=== PATIENT | male | born 1990 ===

== ENCOUNTER 2021-10-03 16:56 | Emergency (ER) | payer OTHER ==
--- NOTE | 2021-10-03 17:04 | EDM.PDOC ---
ED HPI GENERAL MEDICAL PROBLEM - General Chief Complaint: General Stated Complaint: SMASHED FINGER AT WORK Time Seen by Provider: 10/03/21 16:58 Source of Information: Reports: Patient History Limitations: Reports: No Limitations - History of Present Illness INITIAL COMMENTS - FREE TEXT/NARRATIVE: HISTORY AND PHYSICAL: History of present illness: Patient is a 31-year-old male who presents to the emergency room with complaints of a crush injury of the left distal fifth digit. He states some heavy equipment fell on his finger resulting in a burst type injury. He denies any o ther extremity involvement. Patient denies any fever, chills, headache, change in vision, syncope or near syncope. Denies any chest pain, back pain, shortness of breath or cough. Denies any abdominal pain, nausea, vomiting, diarrhea, constipation or dysuria. Has not noted any blood in urine or stool. Patient has been eating and drinking appropriately. No recent travel or sick contacts. Review of systems: As per history of present illness and below otherwise all systems reviewed and negative. Past medical history: As per history of present illness and as reviewed below otherwise noncontrib utory. Surgical history: As per history of present illness and as reviewed below otherwise noncontributory. Social history: See social history for further information Family history: As per history of present illness and as reviewed below otherwise noncontributory. Physical exam: General: Well developed and well nourished 31-year-old male. Alert and orientated x 3. Nontoxic in appearance and in no acute distress. Vital signs are stable and have been reviewed by me. Nursing notes were reviewed. HEENT: Atraumatic, normocephalic, pupils equal and reactive bilaterally, negative for conjunctival pallor or scleral icterus, mucous membranes moist, TMs normal bilaterally, throat clear, neck supple, nontender, trachea midline. No drooling or trismus noted. No meningeal signs. No hot potato voice noted. Lungs: Clear to auscultation bilaterally. No wheezes, rales, or rhonchi. Chest nontender. Normal work of breathing, no accessory muscles used. Heart: S1S2, regular rate and rhythm without overt murmur, gallops, or rubs. No JVD. No peripheral edema Abdomen: Soft, nondistended, nontender. Normoactive bowel sounds. Negative for masses or costovertebral tenderness. Pelvis: Stable nontender. Genitourinary/Rectal: Deferred. Skin: 3cm laceration, distal ends of the laceration are superficial with the subcutaneous laceration of the middle of the black. Does not involve the nailbed does run lateral against the side of the medial nail. No active bleeding. Remaining skin is intact, warm, dry. No lesions or rashes noted. Hematologic: No petechiae or purpra. Mucosa appropriate color and normal nail bed color and refill. Extremities: Crush injury with laceration to the left distal fifth digit, does not involve the nailbed. He moves all extremities per self without difficulty or deficits, negative for cords or calf pain. Neurovascular unremarkable. Neuro: Awake, alert, oriented. Cranial nerves II through XII unremarkable. Cerebellum unremarkable. Motor and sensory unremarkable throughout. Exam nonfocal. Psychiatric: Mood and affect are appropriate. Normal thought process. Answering questions appropriately. Please note that the patient was seen and evaluated during the 2019 SARS-CoV-2 novel coronavirus pandemic period. Community viral transmission is ongoing at time of this encounter and the emergency department is operating under pandemic response procedures. Medical Decision Making: Patient is a 31-year-old male who presents to the emergency room with a crush injury to the left distal finger. X-ray shows an acute, minimally distracted crush fracture of the tip of the 5th finger. I will place patient on Keflex. 1% lidocaine was used to anesthetize the laceration. Chlorhexidine and wound wash was used to thoroughly cleanse and irrigate the site. Usual and customary procedures were followed for suture placement. #3 interrupted sutures were placed, 4-0 nylon. Patient tolerated well. Bacitracin nonstick dressing was applied. I have talked with the patient about today's findings, in addition to providing specific details for plan of care. Patient declines wanting anything for pain at this time. We did discuss following up with hand surgeon for ree valuation. Reassessment at the time of disposition demonstrates that the patient is in no acute distress. The patient is stable for discharge, counseling was provided and we discussed in great detail signs and symptoms that would prompt them to return to the Emergency Department. Medication, follow up and supportive care measures were reviewed and discussed. Voices understanding and is agreeable to plan of care. Denies any further questions or concerns at this time. Diagnostics: X-ray Therapeutics: Tdap, lidocaine, bacitracin, nonstick dressing Prescription: Keflex Impression: Tuft fracture, left, open Plan: 1. You were evaluated today on an emergent basis. Keep the skin clean and dry, wash gently with mild soap and water twice daily. Continue to monitor for signs of infection. Take the antibiotic as prescribed to prevent infection. While healing please use a bulky bandage or protective covering to prevent reinjury. 2. You can alternate Tylenol and ibuprofen as needed for pain and fever management. 3. We encourage you to follow up with your primary care provider and/or hand surgeon (Dr Ram or Timothy at ) in the next week for re- evaluation and further care/management. 4. If your symptoms should worsen, new symptoms develop or any of the signs and symptoms we discussed should arise please return to the emergency room or call 911 (if needed). Definitive disposition and diagnosis as appropriate pending reevaluation and review of above. Left Finger-Index Pain Score (Numeric/FACES): 4 - Related Data Allergies Allergy/AdvReac Type Severity Reaction Status Date / Time No Known Allergies Allergy Verified 10/03/21 17:27 Home Meds: Home Meds cephALEXin [Keflex] 500 mg PO BID 5 Days #10 cap 10/03/21 [Rx] ED ROS GENERAL - Review of Systems Review Of Systems: Comprehensive ROS is negative, except as noted in HPI. ED EXAM, GENERAL - Physical Exam Exam: See Below (See dictation) ED GENERAL MEDICAL PROCEDURES - Laceration/Wound Repair Left distal 5th digit Lac/wound length in cm: 3 Appearance: Superficial, Subcutaneous, Irregular Distal NVT: Neuro & Vascular Intact, No Tendon Injury Anesthetic Type: Local Local Anesthetic Volume: 2cc Skin Prep: Chlorhexidine (Hibiciens), Saline, Sterile Drape Saline irrigation (cc's): 500 Exploration/Debridement/Repair: Wound Explored, In a Bloodless Field, Explored to Base, No Foreign Material Found Closed with: Sutures Suture Size: 4-0 # of Sutures: 3 Suture Type: Nylon, Interrupted, Simple Drain Placement: No Sterile Dressing Applied: Provider Tetanus Status Addressed: Yes Complications: No Course - Vital Signs Last Recorded V/S: Last Vital Signs Temp 98.6 F 10/03/21 18:55 Pulse 76 10/03/21 18:55 Resp 16 10/03/21 18:55 BP 148/106 H 10/03/21 18:55 Pulse Ox 99 10/03/21 18:55 - Orders/Labs/Meds Meds: Medications Discontinued Medications Generic Name Dose Route Start Last Admin Trade Name Srinivasan PRN Reason Stop Dose Admin Bacitracin 1 dose 10/03/21 17:33 10/03/21 17:46 Bacitracin Oint 1 Gm U/D Packet TOP 10/03/21 17:34 1 dose ONETIME ONE Administration Diphtheria/Tetanus/Acell Pertussis 0.5 ml 10/03/21 17:33 10/03/21 17:46 Diphtheria,Pertussis(Acell),Tetanus Vaccine 0.5 Ml Syringe IM 10/03/21 17:34 0.5 ml .ONCE ONE Administration Lidocaine HCl 2 ml 10/03/21 17:33 10/03/21 17:46 Lidocaine 1% Pf 2 Ml Sdv INJECT 10/03/21 17:34 2 ml ONETIME ONE Administration Departure - Departure Time of Disposition: 18:26 Disposition: Home, Self-Care 01 Clinical Impression: Open fracture of tuft of distal phalanx of finger - Discharge Information Prescriptions: cephALEXin [Keflex] 500 mg PO BID 5 Days #10 cap Instructions: Finger Fracture, Adult, [id number], Laceration Care, Adult, [id number] Referrals: PCP,None [Primary Care Provider] - Forms: ED Department Discharge Additional Instructions: The following information is given to patients seen in the emergency department who are being discharged to home. This information is to outline your options for follow-up care. We provide all patients seen in our emergency department with a follow-up referral. The need for follow-up, as well as the timing and circumstances, are variable depending upon the specifics of your emergency department visit. If you don't have a primary care physician on staff, we will provide you with a referral. We always advise you to contact your personal physician following an emergency department visit to inform them of the circumstance of the visit and for follow-up with them and/or the need for any referrals to a consulting specialist. The emergency department will also refer you to a specialist when appropriate. This referral assures that you have the opportunity for follow-up care with a specialist. All of these measure are taken in an effort to provide you with optimal care, which includes your follow-up. Under all circumstances we always encourage you to contact your private physician who remains a resource for coordinating your care. When calling for follow-up care, please make the office aware that this follow-up is from your re cent emergency room visit. If for any reason you are refused follow-up, please contact the [facility] at and asked to speak to the emergency department charge nurse. [facility] [address] [place] [address] [id number] [facility] [address] [place] [id number] Thank you for choosing the [facility] emergency department in [place] for your medical needs today. It was a pleasure caring for you. Today you were seen in the emergency department for open finger fracture. Your prescription was electronically sent to: [place] [facility] (antibiotic) 1. You were evaluated today on an emergent basis. Keep the skin clean and dry, wash gently with mild soap and water twice daily. Continue to monitor for signs of infection. Take the antibiotic as prescribed to prevent infection. While healing please use a bulky bandage or protective covering to prevent reinjury. 2. You can alternate Tylenol and ibuprofen as needed for pain and fever management. 3. We encourage you to follow up with your primary care provider and/or hand surgeon (Dr Ram or Timothy at ) in the next week for re- evaluation and further care/management. 4. If your symptoms should worsen, new symptoms develop or any of the signs and symptoms we discussed should arise please return to the emergency room or call 911 (if needed). Sepsis Event Note (ED) - Focused Exam Vital Signs: Vital Signs Temp Pulse Resp BP Pulse Ox 10/03/21 18:55 98.6 F 76 16 148/106 H 99 10/03/21 17:28 97.7 F 74 16 149/96 H 99
[2021-10-03] MEDS ORDERED: Diphtheria,Pertussis(Acell),Tetanus Vaccine 0.5 ML Syringe IM ONE (17:33)
[2021-10-03] MEDS ORDERED: Lidocaine 1% PF 2 ML SDV INJECT ONE (17:33)
[2021-10-03] MEDS ORDERED: Bacitracin Oint 1 GM U/D Packet TOP ONE (17:33)
--- NOTE | 2021-10-03 19:11 | CR ---
INDICATION: Pain after crush injury. COMPARISON: None available. FINDINGS: The left 5th finger was examined with PA, lateral and oblique views for a total of three views. There is an acute crush fracture of the tip of the 5th finger with 1 millimeter of distraction of the fracture fragments. There is no sign of any associated foreign body or gas in the soft tissues. There is no sign of additional fracture or dislocation. There is no sign of radiopaque foreign body elsewhere. No degenerative disease is seen. IMPRESSION: Acute, minimally distracted crush fracture of the tip of the 5th finger. Dictated by Sage Bray MD @ 10/03/2021 7:09:27 PM (Electronically Signed)
== END 2021-10-03 18:57 | disposition home or self-care (01) ==
LOC: MW.ED 16:56
DX: S62.637B Displaced fracture of distal phalanx of left little finger, initial encounter for open fracture (principal); Z23 Encounter for immunization; W23.0XXA Caught, crushed, jammed, or pinched between moving objects, initial encounter
CPT/HCPCS: 12002; 73140-26-F4; 73140-F4; 90471; 90715; 99283-25